=== PATIENT | female | born 2000 | race African-American/Black ===

== ENCOUNTER 2020-01-25 09:12 | Inpatient (IN) ==
[2020-01-25] MEDS ORDERED: MEPERIDINE 50 MG/1 ML VIAL IV PRN (10:16)
[2020-01-25] MEDS ORDERED: AMPICILLIN INJ 2,000 MG in SODIUM CHLORIDE 0.9% 100 ML IV ONE (10:18)
[2020-01-25] MEDS ORDERED: OXYTOCIN/LR 20 UNIT/1,000 ML BAG IV SCH (10:30)
[2020-01-25 10:53] LABS: Basophils % 0.2 % (0.0-0.8); Eosinophils # 0.1 10*3/uL (0.0-0.87); Eosinophils % 0.6 % (0.00-10.9); Hematocrit 29.9 VOL% (35.7-47.0); Hemoglobin 9.1 GM/DL (12.0-16.0); Immature Granulocytes % 0.4 %; Immature Granulocytes Absolute 0.04 #; Lymphocytes # 1.7 10*3/uL (1.4-4.0); Lymphocytes % 18.2 % (21.3-54.2); Mean Corpuscular HGB Conc 30.4 GM/DL (32-36); Mean Corpuscular Volume 82.8 FL (87-102); Mean Platelet Volume 11.2 FL (9.6-12.0); Monocytes % 8.6 % (1.7-12.7); Platelet Count 245 T/CUMM (130-400); Red Blood Count 3.61 MC/CUMM (3.8-5.5); White Blood Count 9.4 T/CUMM (4-12)
[2020-01-25] MEDS: LACTATED RINGERS 1,000 ML IV SCH ×2 (11:03→22:00)
[2020-01-25] MEDS: ONDANSETRON 4 MG/2 ML VIAL IV PRN ×2 (12:30→18:19)
[2020-01-25] MEDS ORDERED: diphenhydrAMINE 50 MG/1 ML VIAL IV PRN ×2 (14:16)
[2020-01-25] MEDS ORDERED: NALOXONE 0.4 MG/ML VIAL IV PRN (14:16)
[2020-01-25] MEDS ORDERED: ePHEDrine 50 MG/ML VIAL IV PRN (14:16)
[2020-01-25] MEDS ORDERED: FAMOTIDINE 20 MG/2 ML VIAL IV ONE (14:16)
[2020-01-25] MEDS ORDERED: PROMETHAZINE 25 MG/1 ML VIAL IM ONE (14:16)
[2020-01-25] MEDS ORDERED: CITRIC ACID/SODIUM CITRATE 30 ML UDCUP PO ONE (14:16)
[2020-01-25] MEDS ORDERED: LACTATED RINGERS 1,000 ML IV ONE (14:16)
[2020-01-25] MEDS ORDERED: hydrOXYzine HCL 25 MG/1 ML VIAL IM PRN (14:16)
[2020-01-25] MEDS ORDERED: fentaNYL 2 MCG/ROPIV 0.2% EPID 100 ML EPIDURAL SCH (14:30)
[2020-01-25 16:11] LABS: Apearance,Urine CLEAR (Clear); Bacteria,Urine Occasional /HPF (Few); Bilirubin,Urine Negative (Negative); Blood, Urine Negative (Negative); Glucose,Urine (UA) Negative (Negative); Ketones,Urine 80 mg/dL (Negative); Mucus,Urine Many /LPF (Occasional); Nitrite,Urine Negative (Negative); Protein,Urine 30 MG/DL; RBC,Urine 2 /HPF (0-4); Squamous Epithelial Cell,Urine Occasional /HPF (0-10); Urine Color Yellow (Yellow); Urine Specific Gravity 1.023 (1.001-1.035); WBC,Urine 4 /HPF (0-6)
[2020-01-25] MEDS ORDERED: METHYLERGONOVINE 0.2 MG/1 ML AMP ONE (19:09)
[2020-01-25] MEDS ORDERED: miSOPROStoL 200 MCG TABLET ONE (19:09)
[2020-01-25] MEDS ORDERED: CARBOPROST TROMETHAMINE 250 MCG/ML AMP IM ONE (19:09)
[2020-01-25] MEDS ORDERED: ceFAZolin 2,000 MG in PREMIX 1 EACH IV ONE (21:30)
[2020-01-25] MEDS ORDERED: LIDOCAINE MPF 2% /EPI 20 ML VIAL ONE (21:57)
[2020-01-25] MEDS ORDERED: OXYTOCIN/LR 20 UNIT/1,000 ML BAG IV ONE (23:06)
[2020-01-25 23:13] LABS: Cord Arterial Blood HCO3 20.6 MMOL/L
[2020-01-25 23:14] LABS: Cord Venous Blood HCO3 23.6 MMOL/L; Cord Venous Blood PCO2 47.8 MMHG; Cord Venous Blood PO2 20.3 MMHG
[2020-01-25] MEDS ORDERED: propofoL 200 MG/20 ML VIAL IV ONE (23:55)
[2020-01-25] MEDS ORDERED: PHENYLEPHRINE 1 MG/10 ML SYRINGE IV ONE (23:56)
[2020-01-25] MEDS ORDERED: ONDANSETRON 4 MG/2 ML VIAL ONE (23:56)
[2020-01-26] MEDS: IBUPROFEN 800 MG TABLET PO PRN ×5 (01:47→23:45)
[2020-01-26] MEDS: oxyCODONE/ACETAMINOPHEN 5-325 MG TABLET PO PRN ×4 (02:08→21:26)
[2020-01-26 05:34] LABS: Basophils % 0.2 % (0.0-0.8); Hematocrit 29.3 VOL% (35.7-47.0); Hemoglobin 9.1 GM/DL (12.0-16.0); Immature Granulocytes % 0.9 %; Immature Granulocytes Absolute 0.15 #; Lymphocytes # 1.1 10*3/uL (1.4-4.0); Lymphocytes % 6.1 % (21.3-54.2); Mean Corpuscular HGB Conc 31.1 GM/DL (32-36); Mean Platelet Volume 10.9 FL (9.6-12.0); Monocytes % 8.1 % (1.7-12.7); Neutrophils % 84.7 % (38.7-73.9); Platelet Count 228 T/CUMM (130-400); Red Blood Count 3.53 MC/CUMM (3.8-5.5); White Blood Count 17.3 T/CUMM (4-12)
[2020-01-26] MEDS: SIMETHICONE CHEW 80 MG TABLET PO PRN (16:15)
[2020-01-26] MEDS: MAGNESIUM HYDROXIDE SUSP 30 ML UDCUP PO PRN (16:15)
[2020-01-26] MEDS: DOCUSATE SODIUM 100 MG CAPSULE PO PRN (21:26)
[2020-01-27] MEDS: oxyCODONE/ACETAMINOPHEN 5-325 MG TABLET PO PRN ×3 (05:56→18:46)
[2020-01-27] MEDS: SIMETHICONE CHEW 80 MG TABLET PO PRN ×2 (10:27→21:33)
[2020-01-27] MEDS: DOCUSATE SODIUM 100 MG CAPSULE PO PRN ×2 (10:27→21:33)
[2020-01-27] MEDS: MAGNESIUM HYDROXIDE SUSP 30 ML UDCUP PO PRN ×2 (10:28→21:33)
[2020-01-27] MEDS: IBUPROFEN 800 MG TABLET PO PRN ×2 (11:55→18:45)
[2020-01-28] MEDS: IBUPROFEN 800 MG TABLET PO PRN ×2 (00:20→06:39)
[2020-01-28] MEDS: SIMETHICONE CHEW 80 MG TABLET PO PRN (03:11)
[2020-01-28] MEDS ORDERED: BISACODYL 10 MG SUPP RECTAL PRN (03:42)
[2020-01-28] MEDS ORDERED: oxyCODONE/ACETAMINOPHEN 5-325 MG TABLET PO PRN (06:38)
[2020-01-28] MEDS: oxyCODONE/ACETAMINOPHEN 5-325 MG TABLET PO PRN (06:39)
[2020-01-28 08:58] VITALS: BP 132/75
[2020-01-28] MEDS ORDERED: DIPH/TET/ACEL PERT BOOSTER VACCINE 0.5 ML VIAL IM ONE (10:13)
== END 2020-01-28 12:25 | disposition home or self-care (01) | DRG 540 ==
LOC: N.LDOUT 09:12 → N.LD 09:15 → N.OB 01-26 02:15
PROVIDERS: ADMIT Specialist; ATTEND Specialist
PROC: LDCSECT (ICD-10-PCS; 2020-01-25 21:30)

== ENCOUNTER 2021-09-20 05:12 | Inpatient (IN) ==
[2021-09-20] MEDS ORDERED: ceFAZolin 2,000 MG/50 ML DUPLEX IV ONE (05:49)
[2021-09-20] MEDS ORDERED: ONDANSETRON 4 MG/2 ML VIAL IV PRN ×2 (05:49→13:44)
[2021-09-20] MEDS ORDERED: FAMOTIDINE 20 MG/2 ML VIAL IV ONE (05:49)
[2021-09-20] MEDS ORDERED: CITRIC ACID/SODIUM CITRATE 30 ML UDCUP PO ONE (05:49)
[2021-09-20] MEDS: LACTATED RINGERS 1,000 ML IV SCH ×2 (06:20→18:49)
[2021-09-20 06:29] LABS: Basophils % 0.3 % (0.0-0.8); Eosinophils # 0.1 10*3/uL (0.0-0.87); Eosinophils % 0.6 % (0.00-10.9); Hematocrit 30.3 VOL% (35.7-47.0); Hemoglobin 9.7 GM/DL (12.0-16.0); Immature Granulocytes % 0.7 %; Immature Granulocytes Absolute 0.08 #; Lymphocytes # 2.1 10*3/uL (1.4-4.0); Lymphocytes % 19.2 % (21.3-54.2); Mean Corpuscular Volume 84.6 FL (87-102); Mean Platelet Volume 10.4 FL (9.6-12.0); Monocytes % 8.8 % (1.7-12.7); Neutrophils % 70.4 % (38.7-73.9); Platelet Count 217 T/CUMM (130-400); Red Blood Count 3.58 MC/CUMM (3.8-5.5); Red Cell Distribution Width 14.1 % (9.3-17.3); White Blood Count 10.7 T/CUMM (4-12)
[2021-09-20 06:43] LABS: Albumin 2.5 G/DL (3.4-5.0); Bilirubin,Total 0.4 MG/DL (0.20-1.00); Calcium 8.5 MG/DL (8.5-10.1); Osmolality,Calculated 271.7 MOS/KG (273-304); Potassium 3.4 MMOL/L (3.5-5.1); Total Protein 6.9 G/DL (6.4-8.2)
[2021-09-20] MEDS ORDERED: TRANEXAMIC ACID 1,000 MG/10 ML VIAL ONE (08:00)
[2021-09-20] MEDS ORDERED: miSOPROStoL 200 MCG TABLET ONE (08:00)
[2021-09-20] MEDS ORDERED: SODIUM CHLORIDE 0.9% 0 ML IV ONE (08:01)
[2021-09-20] MEDS ORDERED: OXYTOCIN/LR 20 UNIT/1,000 ML BAG IV ONE ×4 (08:01→13:44)
[2021-09-20] MEDS ORDERED: CARBOPROST TROMETHAMINE 250 MCG/ML AMP IM ONE (08:01)
[2021-09-20] MEDS ORDERED: METHYLERGONOVINE 0.2 MG/1 ML AMP ONE (08:01)
[2021-09-20] MEDS ORDERED: METOCLOPRAMIDE 10 MG/2 ML VIAL ONE (08:23)
[2021-09-20] MEDS ORDERED: ONDANSETRON 4 MG/2 ML VIAL ONE (08:23)
[2021-09-20] MEDS ORDERED: BUPIVACAINE SPINAL 0.75% 2 ML AMP SPINAL ONE (08:23)
[2021-09-20] MEDS ORDERED: PHENYLEPHRINE 1 MG/10 ML SYRINGE IV ONE (09:04)
[2021-09-20] MEDS ORDERED: LACTATED RINGERS 2,000 ML IV ONE (09:04)
[2021-09-20 09:23] LABS: Cord Arterial Blood HCO3 21.3 MMOL/L
[2021-09-20 09:24] LABS: Cord Venous Blood HCO3 24.7 MMOL/L; Cord Venous Blood PCO2 46.5 MMHG; Cord Venous Blood PO2 20.5 MMHG
[2021-09-20 09:44] LABS: Bacteria,Urine Occasional /HPF (Few); Bilirubin,Urine Negative (Negative); Blood, Urine Negative (Negative); Glucose,Urine (UA) Negative (Negative); Ketones,Urine 3+ mg/dL (Negative); Mucus,Urine Few /LPF (Occasional); Nitrite,Urine Negative (Negative); Protein,Urine Negative (Negative); RBC,Urine 1 /HPF (0-4); Urine Appearance Clear (Clear); Urine Color Yellow (Yellow); Urine pH 6.5 (4.5-8.0)
[2021-09-20] MEDS: ACETAMINOPHEN 500 MG TABLET PO SCH ×2 (12:44→18:08)
[2021-09-20] MEDS ORDERED: ACETAMINOPHEN 325 MG TABLET PO PRN (13:44)
[2021-09-20] MEDS ORDERED: BENZOCAINE 20%/MENTHOL 0.5% SPRAY 56 GM CAN TOP PRN (13:44)
[2021-09-20] MEDS ORDERED: RHO(D) IMMUNE GLOBULIN 300 MCG SYRINGE IM ONE (13:44)
[2021-09-20] MEDS ORDERED: BISACODYL 10 MG SUPP RECTAL PRN (13:44)
[2021-09-20] MEDS ORDERED: MEASLES/MUMPS/RUBELLA VACCINE 0.5 ML VIAL SUBCUT ONE (13:44)
[2021-09-20] MEDS ORDERED: HYDROCORTISONE 2.5% RECTAL CREAM 30 GM TUBE TOP PRN (13:44)
[2021-09-20] MEDS ORDERED: WITCH HAZEL PADS 100/JAR TOP PRN (13:44)
[2021-09-20] MEDS ORDERED: DIPH/TET/ACEL PERT BOOSTER VACCINE 0.5 ML VIAL IM ONE (13:44)
[2021-09-20] MEDS ORDERED: LANOLIN 50% CREAM 0.3 OZ TUBE TOP PRN (13:44)
[2021-09-20] MEDS: KETOROLAC 30 MG/1 ML VIAL IV SCH ×2 (15:39→21:23)
[2021-09-20] MEDS: DOCUSATE SODIUM 100 MG CAPSULE PO SCH (19:30)
[2021-09-21] MEDS: ACETAMINOPHEN 500 MG TABLET PO SCH ×3 (00:52→12:50)
[2021-09-21] MEDS: LACTATED RINGERS 1,000 ML IV SCH (03:30)
[2021-09-21] MEDS: KETOROLAC 30 MG/1 ML VIAL IV SCH ×2 (04:04→15:53)
[2021-09-21 06:13] LABS: Basophils % 0.2 % (0.0-0.8); Eosinophils # 0.1 10*3/uL (0.0-0.87); Eosinophils % 0.5 % (0.00-10.9); Hematocrit 28.7 VOL% (35.7-47.0); Immature Granulocytes % 0.5 %; Immature Granulocytes Absolute 0.05 #; Lymphocytes # 1.7 10*3/uL (1.4-4.0); Lymphocytes % 16.5 % (21.3-54.2); Mean Corpuscular HGB Conc 31.4 GM/DL (32-36); Mean Platelet Volume 10.8 FL (9.6-12.0); Monocytes % 10.2 % (1.7-12.7); Neutrophils % 72.1 % (38.7-73.9); Platelet Count 225 T/CUMM (130-400)
[2021-09-21] MEDS: oxyCODONE/ACETAMINOPHEN 5-325 MG TABLET PO PRN ×4 (06:31→23:50)
[2021-09-21 06:37] LABS: Albumin 1.9 G/DL (3.4-5.0); Bilirubin,Total 0.7 MG/DL (0.20-1.00); Calcium 8.1 MG/DL (8.5-10.1); Osmolality,Calculated 274.4 MOS/KG (273-304); Potassium 3.4 MMOL/L (3.5-5.1); Total Protein 5.5 G/DL (6.4-8.2)
[2021-09-21] MEDS: SIMETHICONE CHEW 80 MG TABLET PO PRN ×2 (09:29→21:31)
[2021-09-21] MEDS: POTASSIUM CHLORIDE 20 MEQ TABLET PO SCH (09:30)
[2021-09-21] MEDS: MAGNESIUM HYDROXIDE SUSP 30 ML UDCUP PO PRN ×2 (09:30→21:31)
[2021-09-21] MEDS: DOCUSATE SODIUM 100 MG CAPSULE PO SCH ×2 (09:30→21:30)
[2021-09-21] MEDS: IBUPROFEN 800 MG TABLET PO PRN ×2 (12:21→17:44)
[2021-09-22] MEDS: IBUPROFEN 800 MG TABLET PO PRN (03:15)
[2021-09-22] MEDS ORDERED: PHENOL 1.4% THROAT SPRAY 177 ML BOTTLE PO PRN (04:36)
[2021-09-22] MEDS ORDERED: diphenhydrAMINE 50 MG/1 ML VIAL IV STA (10:22)
[2021-09-22] MEDS ORDERED: DEXAMETHASONE 4 MG/1 ML VIAL IV STA (10:22)
[2021-09-22] MEDS ORDERED: FAMOTIDINE 20 MG/2 ML VIAL IV ONE (11:57)
[2021-09-22] MEDS ORDERED: DEXAMETHASONE 4 MG/1 ML VIAL ONE (17:44)
[2021-09-22] MEDS ORDERED: DEXAMETHASONE 4 MG/1 ML VIAL IV ONE (18:30)
[2021-09-22] MEDS: oxyCODONE/ACETAMINOPHEN 5-325 MG TABLET PO PRN (19:03)
[2021-09-22] MEDS: DOCUSATE SODIUM 100 MG CAPSULE PO SCH ×2 (19:05→21:50)
[2021-09-22] MEDS: POTASSIUM CHLORIDE 20 MEQ TABLET PO SCH (19:05)
[2021-09-23] MEDS: oxyCODONE/ACETAMINOPHEN 5-325 MG TABLET PO PRN ×2 (01:12→10:45)
[2021-09-23] MEDS: IBUPROFEN 800 MG TABLET PO PRN (04:06)
[2021-09-23 07:41] VITALS: BP 141/87
[2021-09-23] MEDS: DOCUSATE SODIUM 100 MG CAPSULE PO SCH (10:44)
[2021-09-23] MEDS: POTASSIUM CHLORIDE 20 MEQ TABLET PO SCH (10:46)
== END 2021-09-23 14:35 | disposition home or self-care (01) | DRG 540 ==
LOC: N.LD 05:12 → N.OB 13:43
PROVIDERS: ADMIT Specialist; ATTEND Specialist
PROC: LDCSECT (ICD-10-PCS; 2021-09-20 09:00)